=== PATIENT | male | born 1970 | race Caucasian/White ===

== ENCOUNTER 2018-01-13 15:45 | Inpatient (IN) ==
[2018-01-13] MEDS ORDERED: Furosemide 40 MG/4 ML VIAL IVP ONE (16:11)
--- NOTE | 2018-01-13 16:14 | Emergency Department Note ---
Disposition Clinical Impression: Elevated troponin, Peripheral edema Congestive heart failure Qualifiers: Heart failure type: unspecified Heart failure chronicity: acute Qualified Code( s): I50.9 - Heart failure, unspecified Disposition: Admitted As Inpatient Condition: Good Referrals: NONE,PCP [Primary Care Provider] - Forms: ED Satisfaction Letter Time of Disposition: 18:12 General Adult HPI - General Chief complaint: ED Shortness of Breath/Dyspnea Stated complaint: general edema Time Seen by Provider: 01/13/18 15:55 Source: patient Mode of arrival: ambulatory Limitations: no limitations Nursing Notes Reviewed: Yes Vital Signs Reviewed: Yes - History of Present Illness HPI Narrative: 47-year-old male with no significant past medical history but has not followed up with a physician in greater than 20 years presenting to the emergency Department chief complaint of dyspnea and new onset fluid retention. Patient states for the past 3 days has had increased shortness of breath and swelling in his bilateral lower extremities and abdomen. He states this has never happened before. Denies any cardiac history. Denies any nausea, vomiting or abdominal pain. Denies any fevers or cough. Pain Scale: 0 - Related Data Previous Rx's Medication Instructions Recorded Cephalexin [Keflex] 500 mg PO BID #14 capsule 08/14/15 Allergies Allergy/AdvReac Type Severity Reaction Status Date / Time No Known Allergies Allergy Verified 08/14/15 12:07 All systems ED: reviewed and negative except as stated. Respiratory: Reports: dyspnea Past Medical History - Past Medical History Attestation: Yes The following information was validated with the patient. Medical history: Reports: no medical history Surgical history: Reports: no surgical history Psychiatric history: Reports: no psych history - Social History Smoking Status: Never smoker Smokeless Tobacco Status: Yes Alcohol use: Reports: none Drug use: Reports: none Physical Exam - General Limitations: no limitations General appearance: alert, anxious - Head Head exam: atraumatic, normocephalic, normal inspection - Eye Eye exam: Present: normal appearance. Absent: scleral icterus, conjunctival injection - ENT ENT exam: normal exam, mucous membranes moist - Neck Neck exam: Present: normal inspection, full ROM. Absent: tenderness, meningismus - Chest Chest inspection: Present: normal inspection, symmetric chest wall rise. Absent : tenderness, rash - Respiratory Respiratory exam: Present: other (Decreased breath sounds bilaterally) - Cardiovascular Cardiovascular exam: Present: normal rhythm, tachycardia - Abdominal Exam Abdominal exam: Present: Non-Tender, distention. Absent: guarding, rebound, rigidity - Extremities Exam Extremities exam: Present: other (2+ pitting edema bilateral lower extremities) - Neurological Exam Neurological exam: Present: alert, oriented X3 - Psychiatric Psychiatric exam: Present: normal affect, normal mood - Skin Skin exam: Present: warm, intact Course Course Narrative: 47-year-old male presenting to the emergency Department chief complaint of fluid retention dyspnea. Patient is fluid overloaded on exam. Hypoxic when he was first brought back to his room in the emergency department. Once resting patient was in the low 90s. Patient is mildly tachycardic as well. Concern for CHF at this time. We will perform basic laboratory analysis along with placing the patient on BiPAP. We will plan to admit the patient but pending results. Patient agrees with this plan. He is alert and oriented 3 in the room. - Reevaluation(s) Reevaluation #1: Patient's troponin elevated at 0.06. BNP elevated at greater than 1600. Chest x-ray was concerning for pericardial effusion the bedside ultrasound completed did not show any fluid around the heart. Patient states he is feeling moderately better after Lasix and nitro drip. Patient is alert and went 3 in the room with stable vital signs at this time. We will plan to admit the patient for CHF exacerbation. Patient denies any chest pain. Elevated troponin most likely from demand ischemia. I spoke with the hospice on-call Dr. Hernandez who agrees to accept the patient at this time. Vital Signs Temperature 98.3 F 01/13/18 15:46 Pulse Rate 105 01/13/18 15:46 Respiratory Rate 24 01/13/18 15:46 Blood Pressure 153/116 01/13/18 15:46 O2 Sat by Pulse Oximetry 93 01/13/18 15:46 Temperature 98.3 F 01/13/18 15:46 Pulse Rate 105 01/13/18 15:46 Respiratory Rate 24 01/13/18 15:46 Blood Pressure 153/116 01/13/18 15:46 O2 Sat by Pulse Oximetry 93 01/13/18 15:46 Oxygen Delivery Oxygen Delivery Room Air Medical Decision Making - Lab Data Result diagrams: 01/13/18 16:20 01/13/18 16:20 Lab Results 01/13/18 01/13/18 01/13/18 Range/Units 16:11 16:20 16:20 WBC 12.0 H (4.3-11.1) K/mcL RBC 4.26 (4.19-5.50) M/mcL Hgb 11.6 L (12.9-16.9) g/dL Hct 37.2 L (37.5-50.1) % MCV 87.3 (83.0-100.0) fL MCH 27.2 L (28.0-33.3) pg MCHC 31.2 L (31.6-35.5) g/dL RDW 14.8 H (11.5-14.5) % Plt Count 363 (140-400) K/mcL MPV 10.2 (9.4-12.4) fL Immature Gran % 0.3 (0-4) % Seg Neutrophils % 62.6 % Lymphocytes % 20.0 % Monocytes % 6.4 % Eosinophils % 9.5 % Basophils % 1.2 % Neutrophils # 7.5 (1.6-8.9) K/mcL Lymphocytes # 2.4 (0.6-4.6) K/mcL Monocytes # 0.8 (0.0-1.3) K/mcL Eosinophils # 1.1 H (0.0-0.6) K/mcL Basophils # 0.2 (0.0-0.2) K/mcL Sodium 138 (136-145) mEq/L Potassium 3.5 (3.5-5.1) mEq/L Chloride 100 (98-107) mEq/L Carbon Dioxide 32 H (23-29) mEq/L BUN 19 (6-20) mg/dL Creatinine 0.78 (0.70-1.30) mg/dL Est GFR ( Amer) > 60 (> 60) Est GFR (Non-Af Amer) > 60 (> 60) BUN/Creatinine Ratio 24 (6-26) Glucose 159 H (70-105) mg/dL POC Glucose 144 H (70-99) mg/dL Calculated Osmolality 292 (280-300) Lactic Acid (0.5-2.2) mmol/L Calcium 8.8 (8.6-10.3) mg/dL Total Bilirubin 0.8 (0.3-1.0) mg/dL Direct Bilirubin 0.4 H (0.0-0.2) mg/dL Indirect Bilirubin 0.4 (0.0-1.2) mg/dL AST 86 H (13-39) Units/L ALT 82 H (7-52) Units/L Alkaline Phosphatase 109 H (34-104) Units/L Troponin I 0.06 H* (< 0.04) ng/mL B-Natriuretic Peptide (Less than 100) pg/mL Serum Total Protein 5.9 L (6.4-8.9) g/dL Albumin 3.2 L (3.5-5.7) g/dL Globulin 2.7 (2.4-3.5) g/dL Albumin/Globulin Ratio 1.2 (1.1-2.2) 01/13/18 01/13/18 Range/Units 16:20 16:20 WBC (4.3-11.1) K/mcL RBC (4.19-5.50) M/mcL Hgb (12.9-16.9) g/dL Hct (37.5-50.1) % MCV (83.0-100.0) fL MCH (28.0-33.3) pg MCHC (31.6-35.5) g/dL RDW (11.5-14.5) % Plt Count (140-400) K/mcL MPV (9.4-12.4) fL Immature Gran % (0-4) % Seg Neutrophils % % Lymphocytes % % Monocytes % % Eosinophils % % Basophils % % Neutrophils # (1.6-8.9) K/mcL Lymphocytes # (0.6-4.6) K/mcL Monocytes # (0.0-1.3) K/mcL Eosinophils # (0.0-0.6) K/mcL Basophils # (0.0-0.2) K/mcL Sodium (136-145) mEq/L Potassium (3.5-5.1) mEq/L Chloride (98-107) mEq/L Carbon Dioxide (23-29) mEq/L BUN (6-20) mg/dL Creatinine (0.70-1.30) mg/dL Est GFR ( Amer) (> 60) Est GFR (Non-Af Amer) (> 60) BUN/Creatinine Ratio (6-26) Glucose (70-105) mg/dL POC Glucose (70-99) mg/dL Calculated Osmolality (280-300) Lactic Acid 1.5 (0.5-2.2) mmol/L Calcium (8.6-10.3) mg/dL Total Bilirubin (0.3-1.0) mg/dL Direct Bilirubin (0.0-0.2) mg/dL Indirect Bilirubin (0.0-1.2) mg/dL AST (13-39) Units/L ALT (7-52) Units/L Alkaline Phosphatase (34-104) Units/L Troponin I (< 0.04) ng/mL B-Natriuretic Peptide 1624 H (Less than 100) pg/mL Serum Total Protein (6.4-8.9) g/dL Albumin (3.5-5.7) g/dL Globulin (2.4-3.5) g/dL Albumin/Globulin Ratio (1.1-2.2) - EKG Data EKG #1 EKG attestation: Yes I reviewed and interpreted this EKG. EKG results narrative: Sinus rhythm. Right bundle branch block. 93 beats for minute. IL interval 173 , QRS 161, QTc 413. No signs of acute ST segment elevation or ischemia. Attestation Statement - Attestation Attestation: I, Steve Cornelius DO, examined this patient [id number] and my medical decision-making was reviewed with Dr. Kasandra Mccord, Resident Physician. I agree with the documented findings, disposition and treatment plan as described except to the extent set forth below. Please see my progress notes for details.
[2018-01-13 16:32] LABS: Basophils # 0.2 K/mcL (0.0-0.2); Basophils % 1.2 %; Eosinophils # 1.1 K/mcL (0.0-0.6); Eosinophils % 9.5 %; Hematocrit 37.2 % (37.5-50.1); Hemoglobin 11.6 g/dL (12.9-16.9); Immature Granulocytes % 0.3 % (0-4); Lymphocytes # 2.4 K/mcL (0.6-4.6); Mean Corpuscular HGB Conc 31.2 g/dL (31.6-35.5); Mean Corpuscular Hemoglobin 27.2 pg (28.0-33.3); Mean Corpuscular Volume 87.3 fL (83.0-100.0); Mean Platelet Volume 10.2 fL (9.4-12.4); Monocytes # 0.8 K/mcL (0.0-1.3); Monocytes % 6.4 %; Neutrophils # 7.5 K/mcL (1.6-8.9); Platelet Count 363 K/mcL (140-400); Red Blood Count 4.26 M/mcL (4.19-5.50); Red Cell Distribution Width 14.8 % (11.5-14.5); Segmented Neutrophils % 62.6 %
[2018-01-13] MEDS ORDERED: Nitroglycerin 25 MG/250 ML INFUS..BTL IVC SCH (16:45)
--- NOTE | 2018-01-13 16:48 | Emergency Department Note ---
Disposition Clinical Impression: Elevated troponin, Peripheral edema Congestive heart failure Qualifiers: Heart failure type: unspecified Heart failure chronicity: acute Qualified Code( s): I50.9 - Heart failure, unspecified Disposition: Admitted As Inpatient Condition: Good Referrals: NONE,PCP [Primary Care Provider] - Forms: ED Satisfaction Letter General Adult HPI - General Chief complaint: ED Shortness of Breath/Dyspnea Stated complaint: general edema Time Seen by Provider: 01/13/18 15:55 Source: patient Limitations: no limitations - History of Present Illness Pain Scale: 0 - Related Data Previous Rx's Medication Instructions Recorded Cephalexin [Keflex] 500 mg PO BID #14 capsule 08/14/15 Allergies Allergy/AdvReac Type Severity Reaction Status Date / Time No Known Allergies Allergy Verified 08/14/15 12:07 Past Medical History - Past Medical History Medical history: Reports: no medical history Surgical history: Reports: no surgical history Psychiatric history: Reports: no psych history - Social History Smoking Status: Never smoker Smokeless Tobacco Status: Yes Alcohol use: Reports: none Drug use: Reports: none Physical Exam - General Limitations: no limitations General appearance: alert, anxious Course Vital Signs Temperature 98.3 F 01/13/18 15:46 Pulse Rate 105 01/13/18 15:46 Respiratory Rate 24 01/13/18 15:46 Blood Pressure 153/116 01/13/18 15:46 O2 Sat by Pulse Oximetry 93 01/13/18 15:46 Temperature 98.3 F 01/13/18 15:46 Pulse Rate 105 01/13/18 15:46 Respiratory Rate 24 01/13/18 15:46 Blood Pressure 153/116 01/13/18 15:46 O2 Sat by Pulse Oximetry 93 01/13/18 15:46 Oxygen Delivery Oxygen Delivery Room Air Medical Decision Making - Lab Data Result diagrams: 01/13/18 16:20 01/13/18 16:20 Lab Results 01/13/18 01/13/18 01/13/18 Range/Units 16:11 16:20 16:20 WBC 12.0 H (4.3-11.1) K/mcL RBC 4.26 (4.19-5.50) M/mcL Hgb 11.6 L (12.9-16.9) g/dL Hct 37.2 L (37.5-50.1) % MCV 87.3 (83.0-100.0) fL MCH 27.2 L (28.0-33.3) pg MCHC 31.2 L (31.6-35.5) g/dL RDW 14.8 H (11.5-14.5) % Plt Count 363 (140-400) K/mcL MPV 10.2 (9.4-12.4) fL Immature Gran % 0.3 (0-4) % Seg Neutrophils % 62.6 % Lymphocytes % 20.0 % Monocytes % 6.4 % Eosinophils % 9.5 % Basophils % 1.2 % Neutrophils # 7.5 (1.6-8.9) K/mcL Lymphocytes # 2.4 (0.6-4.6) K/mcL Monocytes # 0.8 (0.0-1.3) K/mcL Eosinophils # 1.1 H (0.0-0.6) K/mcL Basophils # 0.2 (0.0-0.2) K/mcL Sodium 138 (136-145) mEq/L Potassium 3.5 (3.5-5.1) mEq/L Chloride 100 (98-107) mEq/L Carbon Dioxide 32 H (23-29) mEq/L BUN 19 (6-20) mg/dL Creatinine 0.78 (0.70-1.30) mg/dL Est GFR ( Amer) > 60 (> 60) Est GFR (Non-Af Amer) > 60 (> 60) BUN/Creatinine Ratio 24 (6-26) Glucose 159 H (70-105) mg/dL POC Glucose 144 H (70-99) mg/dL Calculated Osmolality 292 (280-300) Lactic Acid (0.5-2.2) mmol/L Calcium 8.8 (8.6-10.3) mg/dL Total Bilirubin 0.8 (0.3-1.0) mg/dL Direct Bilirubin 0.4 H (0.0-0.2) mg/dL Indirect Bilirubin 0.4 (0.0-1.2) mg/dL AST 86 H (13-39) Units/L ALT 82 H (7-52) Units/L Alkaline Phosphatase 109 H (34-104) Units/L Troponin I 0.06 H* (< 0.04) ng/mL B-Natriuretic Peptide (Less than 100) pg/mL Serum Total Protein 5.9 L (6.4-8.9) g/dL Albumin 3.2 L (3.5-5.7) g/dL Globulin 2.7 (2.4-3.5) g/dL Albumin/Globulin Ratio 1.2 (1.1-2.2) 01/13/18 01/13/18 Range/Units 16:20 16:20 WBC (4.3-11.1) K/mcL RBC (4.19-5.50) M/mcL Hgb (12.9-16.9) g/dL Hct (37.5-50.1) % MCV (83.0-100.0) fL MCH (28.0-33.3) pg MCHC (31.6-35.5) g/dL RDW (11.5-14.5) % Plt Count (140-400) K/mcL MPV (9.4-12.4) fL Immature Gran % (0-4) % Seg Neutrophils % % Lymphocytes % % Monocytes % % Eosinophils % % Basophils % % Neutrophils # (1.6-8.9) K/mcL Lymphocytes # (0.6-4.6) K/mcL Monocytes # (0.0-1.3) K/mcL Eosinophils # (0.0-0.6) K/mcL Basophils # (0.0-0.2) K/mcL Sodium (136-145) mEq/L Potassium (3.5-5.1) mEq/L Chloride (98-107) mEq/L Carbon Dioxide (23-29) mEq/L BUN (6-20) mg/dL Creatinine (0.70-1.30) mg/dL Est GFR ( Amer) (> 60) Est GFR (Non-Af Amer) (> 60) BUN/Creatinine Ratio (6-26) Glucose (70-105) mg/dL POC Glucose (70-99) mg/dL Calculated Osmolality (280-300) Lactic Acid 1.5 (0.5-2.2) mmol/L Calcium (8.6-10.3) mg/dL Total Bilirubin (0.3-1.0) mg/dL Direct Bilirubin (0.0-0.2) mg/dL Indirect Bilirubin (0.0-1.2) mg/dL AST (13-39) Units/L ALT (7-52) Units/L Alkaline Phosphatase (34-104) Units/L Troponin I (< 0.04) ng/mL B-Natriuretic Peptide 1624 H (Less than 100) pg/mL Serum Total Protein (6.4-8.9) g/dL Albumin (3.5-5.7) g/dL Globulin (2.4-3.5) g/dL Albumin/Globulin Ratio (1.1-2.2) Critical Care Time Critical Care Time: Yes Total Critical Care Time: 45 Attestation: Critical care performed: Time is exclusive of separately billable procedures. Time includes: direct patient care, patient reassessment, coordination of patient care, interpretation of data (laboratory data, radiology data, and respiratory data), review of patient's medical records, medical consultation and documentation of patient care. Procedures included in critical care time: Procedures excluded from critical care time: Attestation Statement - Attestation Attestation: I, Steve Cornelius DO, examined this patient [id number] and my medical decision-making was reviewed with Dr. Kasandra Mccord, Resident Physician. I agree with the documented findings, disposition and treatment plan as described except to the extent set forth below. Please see my progress notes for details. 47-year-old male presents emergency room for evaluation of shortness of breath, fluid overload, increased weight gain, difficulty with breathing. Patient has never had any like this before and does not go to the doctor. She denies any other illnesses or medical issues at this time. He is noticed some fluid building up over the last several weeks. Patient denies any fevers or chills chest pain headache vision changes nausea vomiting or diarrhea. He has not been able to walk or take care of himself over the last week secondary to the fluid buildup. Physical exam shows a morbidly obese gentleman with what appears to be third spacing anasarca across the abdomen and pelvis and lower extremities. He has a yellow discoloration of the skin but no signs of scleral icterus at this time. Patient's oropharynx is mucous membranes are moist. Lungs are clear heart is regular abdomen is soft. He does have pitting edema all the way to the abdomen of the chest wall. Patient is concerning for fluid overload of unknown etiology at this point along with potential other metabolic related derangements. Chest x-ray EKG labs including CBC chemistry troponin and BMP will be collected resulted here at this time. Disposition will most likely be admission the hospital. Patient will be placed on BiPAP as well as provided with Lasix and started on nitroglycerin drip. This was a to 45 minutes of critical care. See detailed documentation of the physical exam, medical intervention, medical decision-making and disposition in the resident physician's note. 1715 Patient is feeling better after the breathing treatments. Nitroglycerin is being titrated up at this point of symptoms. Patient is refusing with BiPAP any longer because he feels it makes him worse. He does have abnormal liver function testing along with decreased albumin along with elevated BNP and troponin. Unknown etiology for the fluid overload at this point. Patient is clinically stable despite he does have potential for decompensation. He is recommended to continue wearing his BiPAP. Help with symptom control but does not want to. The fear is that he will continue to work so hard to breathe that he gets so short of breath that he becomes hypoxic and has respiratory distress and needs intubate. She is otherwise stable at this point will require further hospital evaluation and treatment.
[2018-01-13 16:54] LABS: Alanine Aminotransferase 82 Units/L (7-52); Albumin 3.2 g/dL (3.5-5.7); Albumin/Globulin Ratio 1.2 (1.1-2.2); Alkaline Phosphatase 109 Units/L (34-104); Aspartate Amino Transferase 86 Units/L (13-39); BUN/Creatinine Ratio 24 (6-26); Bilirubin,Direct 0.4 mg/dL (0.0-0.2); Bilirubin,Indirect 0.4 mg/dL (0.0-1.2); Bilirubin,Total 0.8 mg/dL (0.3-1.0); Blood Urea Nitrogen 19 mg/dL (6-20); Calcium 8.8 mg/dL (8.6-10.3); Carbon Dioxide 32 mEq/L (23-29); Chloride 100 mEq/L (98-107); Globulin 2.7 g/dL (2.4-3.5); Glucose 159 mg/dL (70-105); Osmolality,Calculated 292 (280-300); Potassium 3.5 mEq/L (3.5-5.1); Sodium 138 mEq/L (136-145); Total Protein 5.9 g/dL (6.4-8.9); eGFR For African Americans > 60 (> 60); eGFR For Non-African Americans > 60 (> 60)
[2018-01-13 16:59] LABS: Troponin I 0.06 ng/mL (< 0.04)
[2018-01-13] MEDS ORDERED: Naloxone 0.4 MG/ML INJ IVP PRN (20:13)
--- NOTE | 2018-01-13 20:31 | Internal Med History&Physical ---
<Cristian Ching R - Last Filed: 01/13/18 20:26> Date of Encounter: 01/13/18 Time of Encounter: 19:45 Internal Medicine - H&P: HPI Chief complaint: Dyspnea Admitted From: Emergency Dept History of present illness: Mr. Justice is a 47 year old male with no known past medical history and has not seen a doctor in over 20 years, presented to the emergency department with 3 day history of dyspnea and fluid retention. He states that he has swelling in his bilateral lower extremities in his abdomen. He reports weight gain and increasing abdominal girth. This is never happened to him before. Denies personal or family history of cardiac disease. He denies fevers, chills, headache, blurred vision, chest pain, cough, back pain, abdominal pain, nausea, vomiting, change in bowels, hematochezia, hematuria, dysuria, weakness, numbness , or leg pain. Denies smoking, alcohol, or other drug use. He does report that about 2 weeks ago he had a cold with cough, but this resolved prior to his new symptoms beginning. Upon arrival to the emergency department he was hypoxic and tachycardic, placed on BiPAP and nitro drip. Eventually he refused to keep BiPAP on, and has maintained good oxygen saturation on 2 L nasal cannula. Past Med Surg Social Fam HX - Past Medical History Medical history: no medical history Psychiatric history: no psych history - Past Surgical History Surgical History: no surgical history - Social History Smoking Status: Never smoker Smokeless Tobacco Status: Yes Alcohol use: none Drug use: none Internal Medicine - H&P: Meds No Known Home Drugs 01/13/18 [History] 3 Allergy/AdvReac Type Severity Reaction Status Date / Time No Known Allergies Allergy Verified 08/14/15 12:07 All Systems PM: A 10-system review of systems was performed and is negative for pertinent findings except as documented above in the HPI. - Constitutional Vitals: Temp Pulse Resp BP Pulse Ox 98.5 F 89 18 144/103 97 01/13/18 20:05 01/13/18 20:05 01/13/18 20:05 01/13/18 20:05 01/13/18 20:05 General appearance: Present: A&O X 3, no acute distress, answers questions appropriately - Head Head exam: Present: atraumatic, normocephalic - Eye Eye exam: Present: EOMI, PERRL, conjuntiva pink, sclera anicteric - ENT ENT exam: Present: mucous membranes moist, normal oropharynx - Neck Neck exam general surgery: Present: supple, trachea midline. Absent: lymphadenopathy - Respiratory Respiratory exam: Present: decreased breath sounds, rales (Mild bibasilar). Absent: accessory muscle use, rhonchi, wheezes - Cardiovascular Cardiovascular exam: Present: RRR, +S1, +S2. Absent: diastolic murmur, systolic murmur - GI/Abdominal GI/Abdominal exam: Present: distended (With pitting edema), firm, normal bowel sounds, soft, no peritoneal signs. Absent: guarding, rebound, tenderness - Extremities Exam Extremities exam: Present: normal capillary refill, pedal edema (+2 pitting edema bilaterally), warm, radial pulses palpable and symmetrical. Absent: calf tenderness, cyanotic, tenderness - Neurological Exam Neurological exam: Present: CN II-XII intact, oriented X3, no focal deficits. Absent: facial droop, speech deficit - Skin Skin exam: Present: dry, intact Internal Med - H&P Results - Labs CBC & Chem 7: 01/13/18 16:20 01/13/18 16:20 - Assessment and plan (1) Congestive heart failure Current Visit: Yes Status: Acute Assessment and plan: Patient presents with new onset fluid overload, likely cardiogenic in nature - Peripheral edema, crackles on lung exam, and enlarged cardiopericardial silhouette on CXR. BNP 1624. Denies any chest pain. Patient was placed on BiPAP and nitro drip for pulmonary congestion. Now refused BiPAP. Will also stop nitro drip. No prior cardiac evaluation. Mild leukocytosis, no evidence of consolidation on chest x-ray. Mild normocytic anemia. No electrolyte disturbances or abnormal renal function. Lactic acid normal. Check echocardiogram, I&O's, daily weights, trend troponin. Check TSH, lipid panel, A1c. IV lasix 20mg q8h. Start BB, ACEI, and ASA. Consult cardiology for further recommendations and possible further imaging Qualifiers: Heart failure type: unspecified Heart failure chronicity: acute Qualified Code(s): I50.9 - Heart failure, unspecified (2) Elevated troponin Current Visit: Yes Status: Acute Assessment and plan: Trop 0.06. Likely demand ischemia in setting of fluid overload. Trend q6h. (3) Hypertension Current Visit: Yes Status: Acute Assessment and plan: BP 144-156/103-121. Stop nitro drip. Will start BB and ACEI as above. No medical evaluation in several years. Continue to monitor. Qualifiers: Hypertension type: unspecified Qualified Code(s): I10 - Essential (primary ) hypertension (4) Peripheral edema Current Visit: Yes Status: Acute Assessment and plan: Significant lower extremity edema beginning 3 days ago. Etiology is likely cardiogenic in nature, but other causes have not been ruled out. Elevation in AST, ALT, and Alk Phos. Albumin 3.2. No EtOH, med, or drug abuse. Direct bilirubin 0.4, no jaundice. No AMS. Renal function normal, check UA to evaluation for proteinuria. BMI is 45 and this could be related to HAILE, but no imaging has been conducted to confirm yet. If cardiac work-up is negative, consider abdominal imaging. (5) DVT prophylaxis Current Visit: Yes Status: Acute Assessment and plan: Lovenox - Time Spent With Patient Total time spent is greater than 50% in coordination of care (as documented) at patient's floor/unit and/or counseling patient: <Rad Roman - Last Filed: 01/14/18 02:22> Date of Encounter: 01/13/18 Internal Medicine - H&P: HPI History of present illness: Mr. Justice is a 47 year old male All Systems PM: A 10-system review of systems was performed and is negative for pertinent findings except as documented above in the HPI. - Constitutional Vitals: Temp Pulse Resp BP Pulse Ox 97.9 F 91 19 131/91 96 01/13/18 23:11 01/13/18 23:11 01/13/18 23:11 01/13/18 23:11 01/13/18 23:11 Internal Med - H&P Results - Labs CBC & Chem 7: 01/13/18 16:20 01/13/18 16:20 Labs: Cardiac Enzymes 01/13/18 Range/Units 21:36 Troponin I 0.06 H* (< 0.04) ng/mL - Attending Attestation I examined this patient and my medical decision-making was reviewed with the Resident Physician Dr. Ching. I agree with the documented findings, disposition and treatment plan as described except to the extent set forth below. Mr. Justice is a 47 year old male with no known past medical history presented to the emergency department with 3 day history of dyspnea and fluid retention. he did mention he has been having worsening SOB for few days and legs welling, but from last 3 days it got worsened Gen: A,A,O x 3 Chest: Diminishes BS, mild crackles, no wheezing heart: S1S2+ RRR No murmurs Ext: 3+ pitting edema a/p 1. Acute CHF exacerbation - no 2 D Echo to confirm systolic vs diastolic Lasix naive pt..started on Lasix 20 Q8hr low dose BB + ACEI Check 2 D Echo in AM trend on trop - to r/o ACS 2. Acute hypoxic resp failure due to CHF exacerbation O2 PRN IV diuretics - Time Spent With Patient Total time spent is greater than 50% in coordination of care (as documented) at patient's floor/unit and/or counseling patient:
[2018-01-14 03:27] LABS: Bilirubin,Urine Negative (Negative); Blood,Urine Trace (Negative); Clarity,Urine Clear (Clear); Color,Urine Yellow (Yellow); Glucose,Urine (UA) Normal (Normal); Ketones,Urine Negative (Negative); Leukocyte Esterase,Urine Negative (Negative); Nitrite,Urine Negative (Negative); PH,Urine 6.5 pH Units (5.0-8.0); Protein,Urine 30 mg/dL (Neg-Trace); Specific Gravity,Urine 1.017 (1.010-1.025); Urobilinogen,Urine Normal (Normal)
[2018-01-14 03:30] LABS: Bacteria,Urine None Seen per hpf (None-Few); Hyaline Casts,Urine None Seen per lpf (None-Few); Squamous Epithelial Cell,Urine Moderate per lpf (None-Few); WBC,Urine 0-3 per hpf (0-3)
[2018-01-14 03:44] LABS: Basophils # 0.1 K/mcL (0.0-0.2); Basophils % 1.1 %; Eosinophils # 1.4 K/mcL (0.0-0.6); Eosinophils % 12.4 %; Hematocrit 37.6 % (37.5-50.1); Hemoglobin 11.3 g/dL (12.9-16.9); Immature Granulocytes % 0.5 % (0-4); Lymphocytes # 2.1 K/mcL (0.6-4.6); Lymphocytes % 19.7 %; Mean Corpuscular HGB Conc 30.1 g/dL (31.6-35.5); Mean Corpuscular Hemoglobin 26.4 pg (28.0-33.3); Mean Corpuscular Volume 87.9 fL (83.0-100.0); Mean Platelet Volume 10.1 fL (9.4-12.4); Monocytes # 0.7 K/mcL (0.0-1.3); Monocytes % 6.4 %; Neutrophils # 6.5 K/mcL (1.6-8.9); Platelet Count 383 K/mcL (140-400); Red Blood Count 4.28 M/mcL (4.19-5.50); Red Cell Distribution Width 14.9 % (11.5-14.5); Segmented Neutrophils % 59.9 %
[2018-01-14 03:51] LABS: INR 1.4; Prothrombin Time 15.6 Seconds (9.4-12.1)
[2018-01-14 04:08] LABS: Alanine Aminotransferase 73 Units/L (7-52); Albumin/Globulin Ratio 1.1 (1.1-2.2); Alkaline Phosphatase 105 Units/L (34-104); Aspartate Amino Transferase 69 Units/L (13-39); BUN/Creatinine Ratio 20 (6-26); Bilirubin,Total 0.9 mg/dL (0.3-1.0); Blood Urea Nitrogen 17 mg/dL (6-20); Calcium 8.7 mg/dL (8.6-10.3); Carbon Dioxide 33 mEq/L (23-29); Chloride 101 mEq/L (98-107); Chol/HDL Ratio 3.7 (0-4.9); Cholesterol 99 mg/dL (< 200); Globulin 2.8 g/dL (2.4-3.5); Glucose 154 mg/dL (70-105); HDL Cholesterol 27 mg/dL (40-59); LDL Cholesterol,Calculated 55 mg/dL (0-99); Magnesium 1.6 mg/dL (1.6-2.6); Osmolality,Calculated 299 (280-300); Phosphorous 3.9 mg/dL (2.7-4.5); Potassium 3.9 mEq/L (3.5-5.1); Sodium 142 mEq/L (136-145); Total Protein 5.8 g/dL (6.4-8.9); Triglycerides 84 mg/dL (< 150); eGFR For African Americans > 60 (> 60); eGFR For Non-African Americans > 60 (> 60)
[2018-01-14 04:09] LABS: Troponin I 0.07 ng/mL (< 0.04)
[2018-01-14 04:21] LABS: Thyroid Stimulating Hormone 5.719 mcIU/mL (0.340-5.600)
[2018-01-14] MEDS ORDERED: *HR* Enoxaparin 30 MG/0.3 ML SYRINGE SQ SCH (07:00)
[2018-01-14 08:15] LABS: Estimated Average Glucose 148 mg/dl; Hemoglobin A1C 6.8 %
--- NOTE | 2018-01-14 09:27 | Cardiology Consult Note ---
<Shashank,Thaddeus R - Last Filed: 01/14/18 09:25> Date of Encounter: 01/14/18 Time of Encounter: 09:25 Assessment and Plan (1) Congestive heart failure Current Visit: Yes Status: Acute Acute CHF exacerbation--unclear type--systolic vs diastolic. TTE to determine. BNP 1624. Complaints of weight gain, dypsnea, LE edema. However, CXR shows lungs are clear. Agree with IV diuresis--currently on IV Lasix 20mg TID. Pt endorses excess fluid intake. States he is always thirsty. Will check HGBA1C since he has not seen a provider in 20 years. Recommend strict I/Os, Na and fluid restriction, daily weights. Further recommendations pending TTE. Qualifiers: Heart failure type: unspecified Heart failure chronicity: acute Qualified Code(s): I50.9 - Heart failure, unspecified (2) Elevated troponin Current Visit: Yes Status: Acute Troponin 0.06, 0.06, 0.07 in setting of CHF exacerbation. Flat and adynamic, likely demand ischemia. Denies chest pain. Check TTE. (3) Hypertension Current Visit: Yes Status: Acute Elevated on admission, now better controlled. Adjust antihypertensives as necessary. Qualifiers: Hypertension type: unspecified Qualified Code(s): I10 - Essential (primary ) hypertension Discussion w patient/family: The assessment and plan as outlined above was discussed with the patient and/or family members who expressed understanding and agreement. All questions were answered. Thank you for involving us in the care of your patient. Please call with any questions. I will discuss all the above with Dr. Kumar and make changes as necessary. History of Present Illness Consult date: 01/14/18 Requesting physician: Rad Roman Consult reason: CHF, elevated troponin Chief complaint: Dyspnea, LE edema History of present illness: Mr. Justice is a 47 year old male with no known past medical history and has not seen a doctor in over 20 years, presented to the emergency department with 3 day history of dyspnea and fluid retention. He states that he has swelling in his bilateral lower extremities in his abdomen. He reports weight gain and increasing abdominal girth. Denies personal or family history of cardiac disease. Denies smoking, alcohol, or other drug use. He does report that about 2 weeks ago he had a cold with cough, but this resolved prior to his new symptoms beginning. Upon arrival to the emergency department he was hypoxic and tachycardic, placed on BiPAP and nitro drip. Pt denies chest pain. Does endorse excess fluid intake. Troponin 0.06, 0.06, 0.07. BNP 1624. CXR Enlarged cardiopericardial silhouette suggesting cardiomegaly and/or pericardial effusion. Clear lungs. Past Med Surg Social Fam HX - Past Medical History Medical history: no medical history Psychiatric history: no psych history - Past Surgical History Surgical History: no surgical history - Social History Smoking Status: Never smoker Smokeless Tobacco Status: Yes Alcohol use: none Drug use: none Medications and Allergies No Known Home Drugs 01/13/18 [History] 3 Allergy/AdvReac Type Severity Reaction Status Date / Time No Known Allergies Allergy Verified 08/14/15 12:07 All Systems Review: The remainder of the systems were reviewed and are negative - Constitutional Constitutional: weight gain - Cardiovascular Cardiovascular: as per HPI, dyspnea at rest, dyspnea on exertion, leg edema, orthopnea - Respiratory Respiratory: cough, dyspnea Physical Examination Vital Signs, Last 4 Hours Temp Pulse Resp BP Pulse Ox 01/14/18 07:31 97.7 F 88 17 118/88 94 Vital Signs Temp Pulse Resp BP Pulse Ox 01/14/18 07:31 97.7 F 88 17 118/88 94 01/14/18 03:34 97.9 F 87 18 122/97 95 01/13/18 23:11 97.9 F 91 19 131/91 96 01/13/18 20:15 90 01/13/18 20:05 98.5 F 89 18 144/103 97 01/13/18 19:12 87 18 156/115 98 01/13/18 18:43 88 18 153/121 95 01/13/18 16:30 24 153/116 100 01/13/18 15:46 98.3 F 105 24 153/116 93 Intake and Output 01/13/18 01/14/18 01/14/18 23:59 07:59 15:59 Intake Total 105 / 105 240 / 240 480 / 480 Output Total 500 / 500 300 / 300 Balance -395 / -395 -60 / -60 480 / 480 Intake: IV Fluids 105 / 105 Nitroglycerin Premix 25 MG/250 105 / 105 ML 25 mg In 250 ml @ 50 MCG/MIN 30 mls/hr IVC .Q8H20M [facility] Rx#: [id number] Oral 0 / 0 240 / 240 480 / 480 Output: Urine 500 / 500 300 / 300 Other: Meal Breakfast Percent of Meal Consumed 100% Weight 148.9 kg 148.2 kg Blood Glucose* 124 Patient Weight 01/14/18 23:59 Weight 148.2 kg General: Conversant, No Apparent Distress HEENT: Atraumatic, Normocephaly, Mucus Membranes Moist Neck: Normal carotid pulses Cardiac: Reg Rate and Rhythm, Normal S1 and S2, No Murmur Lungs: Other (mild wheezes) Neuro: Alert and responsive, No focal deficits noted Abdomen: Soft, Non-Tender Skin: No rashes noted on visualized skin Musculoskeletal: No Chest Wall Tenderness Extremities: Other (moderate LE edema) Results 01/14/18 03:19 01/14/18 03:19 Short CBC 01/14/18 01/13/18 Range/Units 03:19 16:20 WBC 10.9 12.0 H (4.3-11.1) K/mcL Hgb 11.3 L 11.6 L (12.9-16.9) g/dL Hct 37.6 37.2 L (37.5-50.1) % Plt Count 383 363 (140-400) K/mcL Neutrophils # 6.5 7.5 (1.6-8.9) K/mcL BMP 01/14/18 01/13/18 Range/Units 03:19 16:20 Sodium 142 138 (136-145) mEq/L Potassium 3.9 3.5 (3.5-5.1) mEq/L Chloride 101 100 (98-107) mEq/L Carbon Dioxide 33 H 32 H (23-29) mEq/L BUN 17 19 (6-20) mg/dL Creatinine 0.87 0.78 (0.70-1.30) mg/dL Glucose 154 H 159 H (70-105) mg/dL Calcium 8.7 8.8 (8.6-10.3) mg/dL Cardiac Enzymes 01/14/18 01/13/18 01/13/18 Range/Units 03:19 21:36 16:20 Troponin I 0.07 H* 0.06 H* 0.06 H* (< 0.04) ng/mL Liver Function 01/14/18 01/13/18 Range/Units 03:19 16:20 Total Bilirubin 0.9 0.8 (0.3-1.0) mg/dL Direct Bilirubin 0.4 H (0.0-0.2) mg/dL AST 69 H 86 H (13-39) Units/L ALT 73 H 82 H (7-52) Units/L Alkaline Phosphatase 105 H 109 H (34-104) Units/L Albumin 3.0 L 3.2 L (3.5-5.7) g/dL Urine 01/14/18 Range/Units 03:10 Urine Color Yellow (Yellow) Urine Clarity Clear (Clear) Urine pH 6.5 (5.0-8.0) pH Units Ur Specific [place] 1.017 (1.010-1.025) Urine Protein 30 H (Neg-Trace) mg/dL Urine Glucose (UA) Normal (Normal) mg/dL Impressions Chest X-Ray 01/13/18 16:05 IMPRESSION: Enlarged cardiopericardial silhouette suggesting cardiomegaly and/or pericardial effusion. Correlation is recommended. Clear lungs. D/ / Zoila Garcia Cha, MD / Zoila Garcia Cha, MD Interpreting Provider: Zoila Garcia Cha, MD Active Medications Aspirin (Aspirin Ec) 81 mg PO DAILY [facility] Stop: 07/16/18 09:01 Carvedilol (Coreg) 3.125 mg PO BIDWM MAN PRN Reason: Protocol Stop: 07/15/18 20:39 Last Admin: 01/13/18 20:56 Dose: 3.125 mg Enoxaparin Sodium (Lovenox) 30 mg SQ 0700 MAN PRN Reason: Protocol Stop: 07/16/18 07:01 Furosemide (Lasix) 20 mg IVP Q8H MAN Stop: 07/16/18 21:01 Ibuprofen (Motrin) 400 mg PO Q6HR PRN PRN Reason: Mild Pain/Fever Stop: 07/15/18 20:14 Lisinopril (Zestril) 2.5 mg PO DAILY MAN PRN Reason: Protocol Stop: 07/16/18 09:01 Naloxone HCl (Narcan) 0.4 mg IVP Q2MIN PRN PRN Reason: SEE COMMENTS Stop: 07/15/18 20:14 - EKG Interpretation EKG results cardiology: personally reviewed (SR, RBBB), other (12 hr tele AVG HR 84, SR, no significant pauses or arrhythmias noted.) Consult Discharge Plan - Plan Referrals: NONE,PCP [Primary Care Provider] - <ArtissarahMarisarayne - Last Filed: 01/14/18 20:48> Date of Encounter: 01/14/18 - Attending Attestation I have personally performed a face to face evaluation on this patient. I have reviewed and agree with the care plan. History and Exam by me shows: 47 YOM with new onset CHF Recent weight gain, RAMIREZ, orthopnea and PND Severe LE swelling ECHO and Likely LHC EKG with RBBB and ST changes anteriorly Patient unable to lay flat for LHC at this time, continue diuresis with Heparin ACS protocol Consider LHC in am Assessment and Plan Discussion w patient/family: The assessment and plan as outlined above was discussed with the patient and/or family members who expressed understanding and agreement. All questions were answered. Thank you for involving us in the care of your patient. Please call with any questions. History of Present Illness History of present illness: Mr. Justice is a 47 year old male All Systems Review: The remainder of the systems were reviewed and are negative Physical Examination Vital Signs, Last 4 Hours Temp Pulse Resp BP Pulse Ox 01/14/18 18:48 97.7 F 78 19 137/100 100 Results 01/14/18 03:19 01/14/18 03:19
[2018-01-14] MEDS: Aspirin Enteric Coated 81 MG Tablet PO SCH (09:37)
[2018-01-14] MEDS ORDERED: Perflutren Lipid Microsphere 1.3 ML in 0.9 % Sodium Chloride 8.7 ML IVP ONE (10:45)
[2018-01-14] MEDS: Ibuprofen 400 MG TABLET PO PRN ×2 (13:13→20:31)
--- NOTE | 2018-01-14 17:25 | Internal Med Progress Note ---
Date of Encounter: 01/14/18 Time of Encounter: 17:22 - Time Spent With Patient - Assessment and plan (1) Congestive heart failure Current Visit: Yes Status: Acute Assessment and plan: Patient presents with new onset fluid overload, likely cardiogenic in nature - Peripheral edema, crackles on lung exam, and enlarged cardiopericardial silhouette on CXR. BNP 1624. Denies any chest pain. Patient was placed on BiPAP and nitro drip for pulmonary congestion. Now refused BiPAP. Will also stop nitro drip. No prior cardiac evaluation. Mild leukocytosis, no evidence of consolidation on chest x-ray. Mild normocytic anemia. No electrolyte disturbances or abnormal renal function. Lactic acid normal. Check echocardiogram, I&O's, daily weights, trend troponin. Check TSH, lipid panel, A1c. IV Lasix 20mg q8h. Start BB, ACEI, and ASA. Consult cardiology for further recommendations and possible further imaging Pt evaluated by cardiology and further recommendations following resut of TTE. Qualifiers: Heart failure type: unspecified Heart failure chronicity: acute Qualified Code(s): I50.9 - Heart failure, unspecified (2) Elevated troponin Current Visit: Yes Status: Acute Assessment and plan: Trop 0.06, 0.06, 0.07. Likely demand ischemia in setting of fluid overload. (3) Hypertension Current Visit: Yes Status: Acute Assessment and plan: BP 144-156/103-121. Stop nitro drip. Will start BB and ACEI as above. No medical evaluation in several years. Continue to monitor. Qualifiers: Hypertension type: unspecified Qualified Code(s): I10 - Essential (primary ) hypertension (4) Peripheral edema Current Visit: Yes Status: Acute Assessment and plan: Significant lower extremity edema beginning 3 days ago. Etiology is likely cardiogenic in nature, but other causes have not been ruled out. Elevation in AST, ALT, and Alk Phos. Albumin 3.2. No EtOH, med, or drug abuse. Direct bilirubin 0.4, no jaundice. No AMS. Renal function normal, check UA to evaluation for proteinuria. BMI is 45 and this could be related to HAILE, but no imaging has been conducted to confirm yet. If cardiac work-up is negative, consider abdominal imaging. Pt notes that edema improved since admission. (5) DVT prophylaxis Current Visit: Yes Status: Acute Assessment and plan: Lovenox less than 15 minutes - Subjective Interval history: Mr. Justice is a 47 year old male with no known past medical history and has not seen a doctor in over 20 years, presented to the emergency department with 3 day history of dyspnea and fluid retention. Pt's family at bedside. He denies prior hx of [place] that he he is aware of. Denies chest pain at this time. Positive bilateral LE edema noted. - Constitutional Vitals: Temp Pulse Resp BP Pulse Ox 98.2 F 84 20 114/92 94 01/14/18 16:14 01/14/18 16:14 01/14/18 16:14 01/14/18 16:14 01/14/18 16:14 General appearance: Present: A&O X 3, no acute distress, obese, answers questions appropriately - Head Head exam: Present: atraumatic, normocephalic - Eye Eye exam: Present: PERRL, conjuntiva pink, sclera anicteric Pupils: Present: PERRL - Neck Neck exam general surgery: Present: supple, trachea midline. Absent: lymphadenopathy - Expanded Respiratory Exam Location: decreased breath sounds: Left, Right - Cardiovascular Cardiovascular exam: Present: RRR, +S1, +S2. Absent: diastolic murmur, gallop, rubs, systolic murmur Additional comments: Distant heart sounds due to body habitus. - GI/Abdominal GI/Abdominal exam: Present: normal bowel sounds, soft, no peritoneal signs. Absent: distended, tenderness - Extremities Exam Extremities exam: Present: pedal edema (e), warm, radial pulses palpable and symmetrical. Absent: calf tenderness, cyanotic - Neurological Exam Neurological exam: Present: CN II-XII intact, oriented X3, no focal deficits. Absent: pronater drift, facial droop, speech deficit - Psychiatric Psychiatric exam: Present: normal affect, normal mood - Skin Skin exam: Present: dry, intact Internal Medicine: Result - Labs CBC & Chem 7: 01/14/18 03:19 01/14/18 03:19 - ABG Interpretation ABG results: PT/INR, D-dimer PT 15.6 Seconds (9.4-12.1) H 01/14/18 03:19 - Impressions Impressions Echocardiogram 01/14/18 20:16 Impressions: LVEF 30%. Severely dilated left ventricle. Moderate left ventricular diastolic dysfunction. Normal right ventricular structure and function. Moderately dilated left atrium. Moderate mitral regurgitation. Moderate pulmonary hypertension. The pericardium appears normal. Left Ventricular Wall Motion: Rest Echo Findings The apex, apical inferior, mid inferior, basal inferior, apical anterior, mid anterior, basal anterior, apical septal, mid inferior septal, basal inferior septal, apical lateral, mid anterior lateral, basal anterior lateral, mid anterior septal, mid inferior lateral, basal anterior septal and basal inferior lateral kruse were hypokinetic. Findings: Study Quality * Technically adequate exam. ECG Findings * Normal sinus rhythm. Left Ventricle * LVEF 30%. * Severely dilated left ventricle. * Severe left ventricular systolic dysfunction. * Moderate left ventricular diastolic dysfunction. Right Ventricle * Normal right ventricular structure and function. Left Atrium * Moderately dilated left atrium. Right Atrium * Normal right atrial size. Interatrial Septum * No evidence of PFO by color Doppler. Aortic Valve * Trileaflet aortic valve with normal function. Mitral Valve * Moderate mitral regurgitation. Tricuspid Valve * Mild-moderate tricuspid regurgitation. * Estimated RVSP is 35 mmHg. * Estimated RA pressure is 20 mmHg. * Moderate pulmonary hypertension. Pulmonic Valve * Pulmonic valve not well visualized. Aorta * Normally sized aortic root. Pericardium * The pericardium appears normal. IVC * The IVC is dilated. * IVC plethora is noted Consult Discharge Plan - Plan Referrals: NONE,PCP [Primary Care Provider] -
[2018-01-14] MEDS: Furosemide 20 MG/2 ML VIAL IVP SCH (20:31)
[2018-01-15] MEDS: Furosemide 20 MG/2 ML VIAL IVP SCH ×3 (04:38→20:42)
[2018-01-15] MEDS: *HR* Enoxaparin 40 MG/0.4 ML SYRINGE SQ SCH (06:26)
[2018-01-15] MEDS: Aspirin Enteric Coated 81 MG Tablet PO SCH (07:45)
[2018-01-15 10:16] LABS: ABG Base Excess 8 mEq/L (-2 to 3); ABG HCO3 34 mEq/L (21-27); ABG Oxygen Saturation 98 % (95-98); ABG PCO2 55 mmHg (35-45); ABG PO2 100 mmHg (85-104); ABG TCO2 36 mEq/L (20-26)
--- NOTE | 2018-01-15 11:32 | Event Note ---
Date of Encounter: 01/15/18 Time of Encounter: 11:31 - Cardiology Event Note TTE resulted--EF 30%. NICMP vs ICMP. Recommend LHC to further evaluate. R/B/A discussed. Pt agrees to proceed. LHC today.
[2018-01-15 11:46] LABS: Basophils # 0.1 K/mcL (0.0-0.2); Basophils % 1.2 %; Eosinophils # 0.8 K/mcL (0.0-0.6); Eosinophils % 8.5 %; Hematocrit 39.1 % (37.5-50.1); Immature Granulocytes % 0.3 % (0-4); Lymphocytes # 1.7 K/mcL (0.6-4.6); Lymphocytes % 17.6 %; Mean Corpuscular HGB Conc 30.7 g/dL (31.6-35.5); Mean Corpuscular Volume 88.1 fL (83.0-100.0); Monocytes # 0.7 K/mcL (0.0-1.3); Monocytes % 6.7 %; Neutrophils # 6.4 K/mcL (1.6-8.9); Platelet Count 381 K/mcL (140-400); Red Blood Count 4.44 M/mcL (4.19-5.50); Segmented Neutrophils % 65.7 %
[2018-01-15 11:53] LABS: INR 1.4; Prothrombin Time 15.2 Seconds (9.4-12.1)
[2018-01-15 11:59] LABS: BUN/Creatinine Ratio 24 (6-26); Blood Urea Nitrogen 20 mg/dL (6-20); Calcium 9.1 mg/dL (8.6-10.3); Carbon Dioxide 32 mEq/L (23-29); Chloride 102 mEq/L (98-107); Glucose 103 mg/dL (70-105); Osmolality,Calculated 295 (280-300); Potassium 3.9 mEq/L (3.5-5.1); Sodium 141 mEq/L (136-145); eGFR For African Americans > 60 (> 60); eGFR For Non-African Americans > 60 (> 60)
[2018-01-15] MEDS ORDERED: *HR* FentaNYL (PF) 100 MCG/2 ML VIAL ONE (12:00)
[2018-01-15] MEDS ORDERED: *HR* Midazolam HCl 2 MG/2 ML VIAL ONE (12:00)
--- NOTE | 2018-01-15 12:00 | Pre-Sedation Evaluation ---
Pre-sedation evaluation - Pre-sedation checklist Date of procedure: 01/15/18 Procedure: LHC Recent Vitals: Last Vital Signs Temp 98.0 F 01/15/18 08:56 Pulse 88 01/15/18 11:27 Resp 20 01/15/18 08:56 BP 144/107 01/15/18 08:56 Pulse Ox 95 01/15/18 08:56 ASA Classification *see protocol: CLASS II-Mild systemic disease
[2018-01-15] MEDS ORDERED: 0.9 % Sodium Chloride 1,000 ML ONE ×2 (12:01→12:59)
--- NOTE | 2018-01-15 12:50 | Invasive Diagnostic Lab Proc ---
Name: Jose Justice Date of Study: 01/15/2018 Date: 1970 Ht: 70.9in Medical Record#: [id number] Age: 47 Wt: 324.08lb Gender: Male BSA: 2.59 Order #: [id number] BMI: 45.37 Physicians Procedure Physician: Seb Kumar MD Referring MD: Referring MD: Staff Name Position Time In LenoreStefanie woodson RN Monitor 11:59 AM Jaylen Doe RN Patrol Guard 11:59 AM Mani Treviño RN Patrol Guard 11:59 AM Kaykay Desouza RT (R) Scrub 11:59 AM Indications Indication Non-Stemi Procedures Performed Procedure L HRT ARTERY/VENTRICLE ANGIO Pre-Procedure Checklist Informed consent is complete signed and on chart. H&P is on chart. ID band is on and ID verified with patient. Patient NPO for procedure The procedure was described for the patient and questions were answered. Blood Pressure: 144/107 ECG is on chart. Rhythm: NSR Plan of Care Patient will tolerate the procedure without complications. Adequate level of comfort will be maintained. Hemodynamics will remain stable Patient will recover from procedure without complications. Respiratory function will be maintained. Cardiac rhythm will remain stable. Patient temperature will be maintained. Patient and/or family have verbalized understanding of the procedure. Patient Education Chief Complaint/Reason for Test: Cardiac Cath Developmental Category: Adult (18-64 years) Developmentally Appropriate for Age: Yes Learning Barriers: None Education Needs: Procedure Education Method: Verbal Information Taught: Cardiac Cath Educational Evaluation: Able to repeat information Intravenous Access Time IV Size Location DC'd Fluid/Drip Rate Units RN 11:48 AM 20g 1 1/4" Patent On Arrival Rt Antecubital Mani Treviño RN 12:01 PM 20g 1 1/4" Patent On Arrival Lt Hand 0.9NaCl 25 ml/hr Mani Terviño RN Allergies No Known Allergies Vital Signs Time BP (mmHg) HR (bpm) O2 Sat. RR (bpm) LOC 11:48 AM 144 / 107 88 95 % 20 5 = Fully awake and oriented or at pre-proc level 12:00 PM / % 5 = Fully awake and oriented or at pre-proc level 12:00 PM / % 5 = Fully awake and oriented or at pre-proc level 12:15 PM / % 4 = Oriented but drowsy 12:02 PM 146 / 116 84 96 % 12:07 PM 154 / 95 82 91 % 12:12 PM 149 / 98 85 94 % 12:17 PM 161 / 103 85 93 % 12:22 PM 151 / 106 86 93 % 12:27 PM 152 / 103 81 88 % 12:32 PM 151 / 85 83 % Procedural Medications Time Medication Dose Units Method Given By 12:00 PM Oxygen 2 L/min nasal cannula Mani Treviño RN 12:04 PM Versed 1 mg Intravenous Mani Treviño RN 12:04 PM Fentanyl 50 mcg Intravenous Mani Treviño RN 12:18 PM Lidocaine 2% 10 ml Subcutaneous Seb Kumar MD ASA Classification: CLASS II- Mild systemic disease (i.e. well-controlled diabetes, hypertension, asthma, cigarette smoking) Wilver Score Preprocedure Postprocedure Activity 2- Moves 4 extremities sustained head lift Activity 2- Moves 4 extremities sustained head lift Circulation 2- SBP +/= 20 points of pre-anesthetic level Circulation 2- SBP +/= 20 points of pre-anesthetic level Consciousness 2- Awake and alert oriented x 3 Consciousness 2- Awake and alert oriented x 3 O2 Saturation 2- Able to maintain O2 satruation of 92% on room air O2 Saturation 2- Able to maintain O2 satruation of 92% on room air Respiratory 2- Able to deep breathe and cough well Respiratory 2- Able to deep breathe and cough well Total Score 10 Total Score 10 Contrast Agent: Isovue Diagnostic Contrast: 96 ml Total Contrast: 96 ml Fluoro Dose: 397 mGy Procedure Log Time Note Enter By 11:58 AM Pt arrived to labor gang supervisor 2 at 11:58 [email or web address] 11:59 AM Stefanie Rosenbaum RN Position: Monitor Time in: 11:59 [facility] 11:59 AM Jaylen Doe RN Position: Patrol Guard [facility]: 11:59 [facility] 11:[facility] AM Mani Treviño RN Position: Patrol Guard Time in: 11:59 [facility] 11:59 AM Kaykay Desouza RT (R) Position: Scrub Time in: 11:59 [facility] 11:59 AM Patient charges- Angio tray pack, Navilyst 3mm J, Pulse Oximetry and ACIST tubing and transducer [facility] 11:59 AM Case Delayed No [facility] 11:59 AM Hair removed from procedure site in procedure lab using clippers. Bilateral groin prepped with Chloraprep by Jaylen Doe RN, then patient was draped. Skin intact. [facility] 11:59 AM Physicliz paged/called 11:59. [facility] 11[facility] AM Physican responded and notified patient is ready 11:59 [email or web address] 11:59 AM Physician arrived 11:59 [facility] 12:00 PM Meet and greet completed [facility] 12:00 PM Sign in performed according to hospital policy. [facility] 12:00 PM Procedure start 12:00 [facility] 12:00 PM CathStat 12:00 PM Time: 12:00 Oxygen on at 2 L/min per nasal cannula by Mani Treviño RN [facility] 12:00 PM Time: 12:00 Patient comfortable and pain free: Yes [facility] 12:00 PM Time: 12:00LOC: 5 = Fully awake and oriented or at pre-proc level [facility] 12:00 PM Clinical Presentation: Non-STEMI [facility] 12:01 PM Vitals capture started with the following parameters, Patient=Adult, Interval=5 min, Initial Kozgekdp=549 mmHg, Deflation Rate=5 mmHg, Cuff placed on Right Arm 12:02 PM HR=84 bpm, LMZU=871/116 mmhg, SpO2=96.0 %, Comment=NSR 12:02 PM ASA Class CLASS II- Mild systemic disease (i.e. well-controlled diabetes, hypertension, asthma, cigarette smoking) [facility] 12:03 PM Recorded ECG: HR=85 Condition=Condition 1 12:04 PM Time: 12:04 Versed 1 mg Intravenous Given by Mani [facility]vi[facility] RN [facility] 12:04 PM Time: 12:04 Fentanyl 50 mcg Intravenous Given by Mani Treviño RN [facility] 12:07 PM HR=82 bpm, EZSF=063/95 mmhg, SpO2=91.0 %, Comment=NSR 12:10 PM Pressure channel 1 zeroed. 12:12 PM HR=85 bpm, XEXZ=918/98 mmhg, SpO2=94.0 %, Comment=NSR 12:14 PM Time out performed according to hospital policy [facility] 12:15 PM Time: 12:00 Patient comfortable and pain free: Yes [facility] 12:15 PM Time: 12:00LOC: 5 = Fully awake and oriented or at pre-proc level [facility] 12:17 PM HR=85 bpm, YEME=853/103 mmhg, SpO2=93.0 %, Comment=NSR 12:18 PM Time: 12:18 10 ml Lidocaine 2% to left groin Subcutaneous Given by Seb Kumar MD [facility] 12:19 PM Micro-Introducer Kit utilized for sheath placement [facility] 12:19 PM Access obtained by percutaneous puncture. 6Fr 10cm Terumo [place] sheath placed in left Femoral artery. [id number] mm 12:20 PM 0.035 145cm Navilyst 3mmJ wire [id number] [facility] 12:20 PM 5Fr FR 4 catheter inserted over the wire [facility] 12:20 PM wire removed [facility] 12:20 PM RCA angiography performed in multiple views. tsmmers 12:20 PM Recorded Pressure: Ao, HR=86, Condition=Condition 1 (Aorta) Ao 123/101/113 12:22 PM HR=86 bpm, IQDP=367/106 mmhg, SpO2=93.0 %, Comment=NSR 12:22 PM wire reinserted. oumm 12:22 PM Catheter removed [facility] 12:22 PM 5Fr FL 4 catheter inserted over the wire [facility] 12:23 PM wire removed [facility] 12:23 PM LCA angiography performed in multiple views. tsoummers 12:23 PM Recorded Pressure: Ao, HR=82, Condition=Condition 1 (Aorta) Ao 115/99/108 12:24 PM Recorded Pressure: Ao, HR=80, Condition=Condition 1 (Aorta) Ao 119/100/111 12:26 PM Catheter removed [facility] 12:26 PM 5Fr Pigtail catheter inserted over the wire [facility] 12:26 PM Catheter selectively placed in left ventricle tsoummers 12:27 PM HR=81 bpm, JFUI=484/103 mmhg, SpO2=88.0 %, Comment=NSR 12:28 PM Recorded Pressure: LV, HR=86, Condition=Condition 1 (Left Ventricle) LV 115/32/36 12:29 PM Bolus angiogram of left Ventricle complete: 10 ml/sec for a total of 30 mls tsoummers 12:29 PM Recorded Pressure: LV, HR=81, Condition=Condition 1 (Left Ventricle) LV 121/5/27 12:29 PM Recorded Pressure: LV, Ao, HR=84, Condition=Condition 1 (Left Ventricle) LV 130/10/28, (Aorta) Ao 132/92/109 12:30 PM Time: 12:15LOC: 4 = Oriented but drowsy tsoummers 12:30 PM Time: 12:15 Patient comfortable and pain free: Yes tsoummers 12:30 PM Catheter removed tsoummers 12:30 PM Procedure completed at 12:30 tsoummers 12:31 PM Sign out completed: Radiation Dose 396.69 mGy Fluoro Time: 3.2 Isovue 370 - 200ml contrast 96 ml given by Seb Kumar MD. Complications: NoneCardiac Rehab Consult needed: NoConfirmed administered medications: Yes tsoummers 12:31 PM Isovue 370 - 200ml,1 Bottle(s) used. tsoummers 12:31 PM Arterial sheath pulled, Angio-seal closure device used and was Successful [id number] S/N. tsoummers 12:31 PM Estimated Blood Loss: minimal tsoummers 12:31 PM Post ECG NSR tsoummers 12:31 PM Post Blood Pressure 152/103 tsoummers 12:31 PM Information taught Cardiac Cath tsoummers 12:31 PM Education needs Procedure, Plan of Care, and Responsibilities of Patient in Care tsoummers 12:31 PM Learning barriers :None tsoummers 12:31 PM Education Methods Verbal tsoummers 12:31 PM Education evaluation Able to repeat information tsoummers 12:32 PM Site status No bleeding/hematoma - Lt Groin as reported by Kaykay Desouza RT (R) at 12:31 tsoummers 12:32 PM Opsite applied tsoummers 12:32 PM Plavix, Effient or Brilinta given No tsoummers 12:32 PM Delay to floor No tsoummers 12:32 PM Complications: None tsoummers 12:32 PM HR=83 bpm, EWTU=963/85 mmhg, Comment=NSR 12:32 PM Family placed in consult room. tsoummers 12:32 PM Fluoro Time: 3.2 tsoummers 12:32 PM Isovue 370 - 200ml contrast [address] Kumar. [facility] 12:32 PM Radiation Dose 396.69 mGy [facility] 12:36 PM Report given to Claire MAGALLANES Pt taken to Room #12. 12:36 [facility] 12:36 PM Coronary Dominance: right [facility] 12:37 PM Patient out of room: 12:37 [facility] 12:39 PM What is the NYHA Class? Class 4 [facility] Complications Complication None Hemodynamics Pressures Site Systolic/A Wave Diastolic/V Wave Mean AO 123 101 113 AO 115 99 108 AO 119 100 111 LV 115 32 36 LV 121 5 27 LV 130 10 28 AO 132 92 109 Post Procedure Information Blood Pressure: 152/103 mmHg Rhythm: NSR Post procedural instructions were given Closure Device Time Device Success/Fail 01/15/2018 12:31:00 PM Angio-Seal VIP Successful Site Checks Time Location Status Staff Sheath In? Note 12:31 PM Lt Groin No bleeding/hematoma Kaykay Desozua RT (R) Pulses Time Site Pre-Procedure Post-Procedure Note 01/15/2018 11:48:00 AM Bilateral DP & PT 1+ Updated by Stefanie Rosenbaum RN on 01/15/2018 12:42:33 PM electronically signed on 01/15/2018 12:43:27 PM with status of Final
[2018-01-15] MEDS ORDERED: Heparin 1,000 UNITS/500 mL 500 ML ONE (12:59)
[2018-01-15] MEDS ORDERED: Nitroglycerin 1,000 MCG/10 ML VIAL IV ONE (12:59)
[2018-01-15] MEDS ORDERED: *HR* Heparin 10,000 UNIT/10 ML VIAL ONE (12:59)
[2018-01-15] MEDS ORDERED: ISOVUE-370 200 ML INFUS..BTL IV ONE (12:59)
[2018-01-15] MEDS ORDERED: Dextrose Gel 15 GM/37.5 ML TUBE PO PRN ×2 (14:50)
[2018-01-15] MEDS ORDERED: *HR* Dextrose 50 % in Water (Syg) 50 ML SYRINGE IVP PRN (14:50)
[2018-01-15] MEDS ORDERED: D5% in Water 1,000 ML IVC PRN (14:50)
[2018-01-15] MEDS ORDERED: Acetaminophen 325 MG TABLET PO PRN (15:00)
--- NOTE | 2018-01-15 15:07 | Event Note ---
Date of Encounter: 01/15/18 Time of Encounter: 15:05 - Cardiology Event Note LHC nonischemic cardiomyopathy, no intervention. Discussed lifevest given his EF is 30% and has dilated LV--risk for sudden cardiac . Pt states he will not be compliant or wear the lifevest. R/B/A discussed. Pt verbalizes understanding of risks, including sudden cardiac . On BB and ACEi. Recommend outpt sleep study to evaluate and treat sleep apnea. Recheck TTE as outpt in 3 months to re-evaluate EF. If EF remains <35%, will need to discuss ICD. Cardiology signing off. Reconsult PRN. Follow-up as outpt in 1-2 weeks. Will coordinate. Recommend pt be sent home on PO maintenance Lasix as well.
--- NOTE | 2018-01-15 16:37 | Internal Med Progress Note ---
Date of Encounter: 01/15/18 Time of Encounter: 09:40 - Assessment and plan (1) Hyperglycemia Current Visit: Yes Status: Acute Assessment and plan: Patient has no medical follow-up, no diagnosis of diabetes. Hemoglobin A1c noted to be 6.8% with random blood glucose above 150. Will start Accu-Chek blood glucose monitoring. (2) Congestive heart failure Current Visit: Yes Status: Acute Assessment and plan: New onset. Echocardiogram shows decreased ejection fraction of 30%, severe left ventricular dilation, moderate LV diastolic dysfunction, moderate left atrial dilation and mitral regurgitation, moderate pulmonary hypertension. Cardiology on board. Continue IV Lasix, beta finesse, KHANG inhibitor. Improving slowly. Underwent left heart catheterization today, which showed normal coronaries, no intervention. LifeVest has been discussed with the patient by cardiology, patient declined. He is at risk of sudden cardiac and ventricular arrhythmias due to low EF. Will require outpatient cardiology follow-up. Continue telemetry monitoring. Qualifiers: Heart failure type: combined systolic and diastolic Heart failure chronicity: acute Qualified Code(s): I50.41 - Acute combined systolic ( congestive) and diastolic (congestive) heart failure (3) Elevated troponin Current Visit: Yes Status: Acute Assessment and plan: Likely related to demand ischemia due to acute CHF. Serum troponins flat and adynamic, at around 0.06. (4) Hypertension Current Visit: Yes Status: Chronic Assessment and plan: Newly diagnosed. Blood pressure continues to be elevated. We will increase lisinopril and Coreg. Continue to monitor closely. Qualifiers: Hypertension type: essential hypertension Qualified Code(s): I10 - Essential (primary) hypertension (5) Sleep apnea Current Visit: Yes Status: Suspected Assessment and plan: Suspected due to noted nocturnal apneic spells and hypoxia. Overnight BiPAP qualification study has been ordered. Check ABG. Patient will need outpatient formal sleep study and pulmonology follow-up. Qualifiers: Sleep apnea type: obstructive Qualified Code(s): G47.33 - Obstructive sleep apnea (adult) (pediatric) - Time Spent With Patient Total time spent is greater than 50% in coordination of care (as documented) at patient's floor/unit and/or counseling patient: - Subjective Interval history: Reports feeling better; denies chest pain, shortness of breath, improving leg swelling; no fever/chills, cough; awaiting heart cath; - Constitutional Vitals: Temp Pulse Resp BP Pulse Ox 98.0 F 86 84 127/37 92 01/15/18 12:55 01/15/18 16:00 01/15/18 13:00 01/15/18 16:00 01/15/18 12:55 General appearance: Present: A&O X 3, morbidly obese, answers questions appropriately - Respiratory Respiratory exam: Present: CTAB. Absent: accessory muscle use, rales, rhonchi, wheezes - Cardiovascular Cardiovascular exam: Present: RRR, +S1, +S2. Absent: diastolic murmur, gallop, rubs, systolic murmur - GI/Abdominal GI/Abdominal exam: Present: normal bowel sounds, soft (obese), no peritoneal signs. Absent: distended, tenderness - Extremities Exam Extremities exam: Present: full ROM, pedal edema (2+ pitting pedal edema upto groin and abdominal wall), warm, radial pulses palpable and symmetrical. Absent : calf tenderness, cyanotic - Neurological Exam Neurological exam: Present: CN II-XII intact, oriented X3 (poor cognition), no focal deficits. Absent: pronater drift, facial droop, speech deficit Internal Medicine: Result - Labs CBC & Chem 7: 01/15/18 11:20 01/15/18 11:20 Labs: Short CBC 01/15/18 Range/Units 11:20 WBC 9.7 (4.3-11.1) K/mcL Hgb 12.0 L (12.9-16.9) g/dL Hct 39.1 (37.5-50.1) % Plt Count 381 (140-400) K/mcL Neutrophils # 6.4 (1.6-8.9) K/mcL BMP 01/15/18 11:20 Sodium 141 Potassium 3.9 Chloride 102 Carbon Dioxide 32 H BUN 20 Creatinine 0.82 Glucose 103 Calcium 9.1 - ABG Interpretation ABG results: ABG ABG pH 7.40 pH Units (7.32-7.45) 01/15/18 10:13 ABG pCO2 55 mmHg (35-45) H 01/15/18 10:13 ABG pO2 100 mmHg (85-104) 01/15/18 10:13 ABG O2 Saturation 98 % (95-98) 01/15/18 10:13 PT/INR, D-dimer PT 15.2 Seconds (9.4-12.1) H 01/15/18 11:20 Consult Discharge Plan - Plan Referrals: Ally Lindquist CNP [Advanced Practice Nurse] - 01/19/18 2:45 pm (Please arrive 45 min. early to appointment to do new patient paperwork. Bring photo ID and insurance card with you. Because this is your first appointment please bring all prescription bottles with you. If you need to reschedule appointment you are required to give a 24 hour notice.) NONE,PCP [Primary Care Provider] -
[2018-01-15] MEDS: Insulin LISPRO 300 UNITS/3 ML VIAL SQ SCH (16:59)
[2018-01-15] MEDS ORDERED: Ondansetron 4 MG/2 ML VIAL IVP PRN (17:14)
[2018-01-15] MEDS ORDERED: Insulin LISPRO 300 UNITS/3 ML VIAL SQ SCH (21:00)
[2018-01-16] MEDS: Furosemide 20 MG/2 ML VIAL IVP SCH (04:31)
[2018-01-16] MEDS: *HR* Enoxaparin 40 MG/0.4 ML SYRINGE SQ SCH (06:56)
[2018-01-16] MEDS: Aspirin Enteric Coated 81 MG Tablet PO SCH (08:26)
[2018-01-16] MEDS: Insulin LISPRO 300 UNITS/3 ML VIAL SQ SCH (08:27)
[2018-01-16 11:24] VITALS: BP 113/74
--- NOTE | 2018-01-16 14:04 | Discharge Summary ---
- NOTES TO OUTPATIENT PROVIDER Notes to Outpatient Provider: Newly diagnosed HTN, CHF, possible OMID, DM Date of Encounter: 01/16/18 Time of Encounter: 14:02 - Discharge Diagnosis (1) Hyperglycemia Priority: Primary Status: Acute (2) Congestive heart failure Priority: Primary Status: Acute Qualifiers: Heart failure type: combined systolic and diastolic Heart failure chronicity: acute Qualified Code(s): I50.41 - Acute combined systolic ( congestive) and diastolic (congestive) heart failure (3) Elevated troponin Priority: Primary Status: Acute (4) Hypertension Priority: Primary Status: Chronic Qualifiers: Hypertension type: essential hypertension Qualified Code(s): I10 - Essential (primary) hypertension (5) Sleep apnea Priority: Primary Status: Suspected Qualifiers: Sleep apnea type: obstructive Qualified Code(s): G47.33 - Obstructive sleep apnea (adult) (pediatric) Hospital course: Mr. Justice is a 47 year old morbidly obese male with no medical followup, who appears mentally slow, was admitted with worsening pedal edema, abdominal distension and weight gain. He was started on IV Lasix and fluid restriction, noted to have good urine output with improvement in symptoms. TTE showed combined CHF with EF 30%, moderate diastolic dysfunction, severe LV dilation, moderate LA dilation, moderate MR and pulmonary HTN. Cardiology was consulted, he underwent LHC showed normal coronaries. He was also started on ASA , beta finesse, ACEI and statin. He was noted to have DM with HbA1C>6.5% and being discharged on Metformin. Lifestyle modifications, cardiac/diabetic diet was encouraged. He was noted to have apneic spells during sleep, he is at high risk for ventricular arrhythmias and sudden cardiac due to cardiomyopathy and possible OHS/OMID. His insurance would not cover BiPAP. Home O2 evaluation was done and he would benefit from 4L/min supplemental O2 via NC, continuously; he is noted to be mobile at home, needs portable home O2. Face to face was completed. Plan of care explained in detail to the family members at bedside, with unfortunately, questionable understanding. He is otherwise medically stable for discharge with outpatient Cardiology f/up. Of note, patient and family refused Life Vest (due to low EF and risk of sudden cardiac ) despite explaining the risks and benefits. Discharge discussed with: patient, family - Time Spent with Patient Total time spent providing and/or coordinating discharge services: Greater than 30 minutes (50 min) - Discharge Medications Prescriptions: Aspirin Enteric Coated [Aspirin EC] 81 mg PO DAILY #30 tablet. Atorvastatin [Lipitor] 20 mg PO HS #60 tablet Carvedilol [Coreg] 6.25 mg PO BIDWM #60 tablet Furosemide [Lasix] 20 mg PO BIDDIURETIC #60 tablet Lisinopril [Zestril] 5 mg PO DAILY #30 tablet metFORMIN [Glucophage] 500 mg PO BIDWM #60 tablet Home Medications: Aspirin Enteric Coated [Aspirin EC] 81 mg PO DAILY #30 tablet. 01/16/18 [Rx] Atorvastatin [Lipitor] 20 mg PO HS #60 tablet 01/16/18 [Rx] Carvedilol [Coreg] 6.25 mg PO BIDWM #60 tablet 01/16/18 [Rx] Furosemide [Lasix] 20 mg PO BIDDIURETIC #60 tablet 01/16/18 [Rx] Lisinopril [Zestril] 5 mg PO DAILY #30 tablet 01/16/18 [Rx] metFORMIN [Glucophage] 500 mg PO BIDWM #60 tablet 01/16/18 [Rx] Allergies/Adverse Reactions: 3 Allergy/AdvReac Type Severity Reaction Status Date / Time No Known Allergies Allergy Verified 08/14/15 12:07 Date of admission: 01/14/18 04:39 Primary care physician: PCP NONE Discharging clinician: Erica Wallace Anticipated date of discharge: 01/16/18 - Constitutional Vitals: Temp Pulse Resp BP Pulse Ox 97.9 F 78 17 113/74 95 01/16/18 11:22 01/16/18 11:22 01/16/18 11:22 01/16/18 11:22 01/16/18 11:22 General appearance: Present: A&O X 3, morbidly obese, answers questions appropriately - Cardiovascular Cardiovascular exam: Present: RRR, +S1, +S2. Absent: diastolic murmur, gallop, rubs, systolic murmur - Patient Status Disposition: Home, Self-Care Condition: Good Functional capacity at discharge: independent ambulation Overall status at discharge: patient is progressing back to baseline - Discharge Instructions Follow Up With: Ally Lindquist CNP [Advanced Practice Nurse] - 01/19/18 2:45 pm (Please arrive 45 min. early to appointment to do new patient paperwork. Bring photo ID and insurance card with you. Because this is your first appointment please bring all prescription bottles with you. If you need to reschedule appointment you are required to give a 24 hour notice.) NONE,PCP [Primary Care Provider] - Additional Instructions: F/up with [facility] in 1-2 weeks - Diet and Activity Activity: resume usual activities as tolerated Diet: diabetic diet, low fat, low cholesterol, low salt diet
[2018-01-16] MEDS ORDERED: Furosemide 20 MG TABLET PO SCH (17:00)
--- NOTE | 2018-01-17 00:35 | Electrocardiograph Report ---
[place] [id number] Test Date: 2018-01-13 Pat Name: Jose Justice Department: 104 Room: 3B48 Gender: M Optical Manufacturing Technician: CELESTINO : 1970 Requested By: Kasandra Mccord Order Number: [id number] Reading MD: Carlene Lee Measurements Intervals [place] Rate: 93 P: 11 NV: 173 QRS: 76 QRSD: 161 T: 107 QT: 363 QTc: 413 Interpretive Statements SINUS RHYTHM POSSIBLE LEFT ATRIAL ENLARGEMENT [-0.1mV P WAVE IN V1/V2] RIGHT BUNDLE BRANCH BLOCK [120+ ms QRS DURATION, UPRIGHT V1, 40+ ms S IN I/aVL/V4/V5/V6] Electronically Signed On 01-17-2018 0:33:38 EDT by Carlene Lee
== END 2018-01-16 16:34 | disposition home or self-care (01) | DRG 192 ==
LOC: EMEROO 15:45 → 2NENU 15:45 → 2NNU 19:20 → SUATTDRO 01-14 04:39 → 3BNU 01-16 08:02
PROVIDERS: ADMIT Internal Medicine; ATTEND Internal Medicine

== ENCOUNTER 2019-10-08 20:29 | Inpatient (IN) ==
[2019-10-08] MEDS ORDERED: Insulin Regular, Human 100 UNIT/ML IV PRN (23:39)
[2019-10-08] MEDS ORDERED: D5% in 0.45% NACL w KCl 20 MEQ/1,000 ML MLS IVC PRN (23:39)
[2019-10-08] MEDS ORDERED: D5% in 0.45% NACL 1,000 ML IVC PRN (23:39)
[2019-10-08] MEDS ORDERED: *HR* Dextrose 50 % in Water (Syg) 50 ML SYRINGE IVP PRN (23:39)
[2019-10-09] MEDS: Insulin Human Regular 100 UNIT in 0.9 % Sodium Chloride 100 ML IVC SCH ×2 (00:17→05:42)
[2019-10-09] MEDS: 0.45 % Sodium Chloride w/KCl 20 MEQ/1,000 ML MLS IVC SCH ×2 (00:18→05:00)
[2019-10-09 00:24] LABS: VBG HCO3 34 mEq/L (21-27); VBG PCO2 58 mmHg (41-51); VBG PH 7.37 pH Units (7.32-7.42); VBG PO2 69 mmHg (25-50)
[2019-10-09 00:36] LABS: Albumin 3.5 g/dL (3.5-5.7); Bilirubin,Total 0.6 mg/dL (0.3-1.0); Calcium 9.6 mg/dL (8.6-10.3); Globulin 3.5 g/dL (2.4-3.5); Magnesium 2.4 mg/dL (1.6-2.6); Phosphorous 2.8 mg/dL (2.7-4.5); Potassium 3.2 mEq/L (3.5-5.1)
[2019-10-09 00:37] LABS: Calcium 9.7 mg/dL (8.6-10.3); Potassium 3.2 mEq/L (3.5-5.1)
[2019-10-09] MEDS ORDERED: Aspirin 325 MG TABLET PO ONE (02:01)
[2019-10-09 02:26] LABS: VBG HCO3 33 mEq/L (21-27); VBG PCO2 52 mmHg (41-51); VBG PH 7.42 pH Units (7.32-7.42); VBG PO2 119 mmHg (25-50)
[2019-10-09] MEDS: *HR* Heparin 5,000 UNIT/ML VIAL SQ SCH ×4 (02:29→20:32)
[2019-10-09 02:36] LABS: Bilirubin,Urine Small (Negative); Blood,Urine Moderate (Negative); Clarity,Urine Clear (Clear); Color,Urine Yellow (Yellow); Glucose,Urine (UA) >=1000 mg/dL (Normal); Ketones,Urine Negative (Negative); Leukocyte Esterase,Urine Negative (Negative); Nitrite,Urine Negative (Negative); Protein,Urine 30 mg/dL (Neg-Trace); Specific Gravity,Urine > 1.030 (1.010-1.025); Urobilinogen,Urine Normal (Normal)
[2019-10-09 02:39] LABS: Bacteria,Urine None Seen per hpf (None-Few); Hyaline Casts,Urine Moderate per lpf (None-Few); RBC,Urine 30-50 per hpf (0-3); Squamous Epithelial Cell,Urine Many per lpf (None-Few)
[2019-10-09 02:43] LABS: Calcium 9.6 mg/dL (8.6-10.3); Potassium 3.5 mEq/L (3.5-5.1)
[2019-10-09 04:39] LABS: VBG HCO3 34 mEq/L (21-27); VBG PCO2 56 mmHg (41-51); VBG PH 7.39 pH Units (7.32-7.42); VBG PO2 95 mmHg (25-50)
[2019-10-09 04:41] LABS: Basophils # 0.2 K/mcL (0.0-0.2); Basophils % 0.9 %; Eosinophils # 0.5 K/mcL (0.0-0.6); Eosinophils % 2.8 %; Hematocrit 43.5 % (37.5-50.1); Hemoglobin 14.5 g/dL (12.9-16.9); Immature Granulocytes % 0.5 % (0-4); Lymphocytes # 2.6 K/mcL (0.6-4.6); Lymphocytes % 15.3 %; Mean Corpuscular HGB Conc 33.3 g/dL (31.6-35.5); Mean Corpuscular Hemoglobin 28.8 pg (28.0-33.3); Mean Corpuscular Volume 86.5 fL (83.0-100.0); Monocytes # 1.5 K/mcL (0.0-1.3); Monocytes % 8.7 %; Platelet Count 198 K/mcL (140-400); Red Blood Count 5.03 M/mcL (4.19-5.50); Red Cell Distribution Width 14.5 % (11.5-14.5); Segmented Neutrophils % 71.8 %; White Blood Count 16.7 K/mcL (4.3-11.1)
[2019-10-09 05:00] LABS: Albumin 3.4 g/dL (3.5-5.7); Bilirubin,Total 0.5 mg/dL (0.3-1.0); Calcium 9.6 mg/dL (8.6-10.3); Globulin 3.5 g/dL (2.4-3.5); Total Protein 6.9 g/dL (6.4-8.9)
[2019-10-09] MEDS ORDERED: Potassium Effervescent 25 MEQ TABLET.EFF PO ONE (05:07)
[2019-10-09] MEDS ORDERED: Potassium Chloride 20 MEQ in D5% in Water 1,000 ML IVC SCH ×2 (06:00→16:11)
[2019-10-09] MEDS ORDERED: Perflutren Lipid Microsphere 1.3 ML in 0.9 % Sodium Chloride 8.7 ML IVP ONE (07:06)
[2019-10-09] MEDS ORDERED: Insulin Human Regular 100 UNIT in 0.9 % Sodium Chloride 100 ML IVC SCH ×2 (07:45→08:00)
[2019-10-09 08:02] LABS: Calcium 9.8 mg/dL (8.6-10.3); Potassium 3.6 mEq/L (3.5-5.1)
[2019-10-09 08:05] LABS: VBG HCO3 35 mEq/L (21-27); VBG PCO2 66 mmHg (41-51); VBG PH 7.33 pH Units (7.32-7.42); VBG PO2 78 mmHg (25-50)
[2019-10-09] MEDS ORDERED: D5% in Water 1,000 ML IVC PRN (09:09)
[2019-10-09] MEDS ORDERED: Dextrose Gel 15 GM/37.5 ML TUBE PO PRN ×2 (09:09)
[2019-10-09] MEDS ORDERED: *HR* Dextrose 50 % in Water (Syg) 50 ML SYRINGE IVP PRN (09:09)
[2019-10-09 09:12] LABS: BUN/Creatinine Ratio 16 (6-26); Blood Urea Nitrogen 23 mg/dL (6-20); Calcium 9.6 mg/dL (8.6-10.3); Carbon Dioxide 33 mEq/L (23-29); Chloride 114 mEq/L (98-107); Glucose 112 mg/dL (70-105); Magnesium 2.3 mg/dL (1.6-2.6); Osmolality,Calculated 330 (280-300); Phosphorous 1.3 mg/dL (2.7-4.5); Potassium 3.4 mEq/L (3.5-5.1); Sodium 158 mEq/L (136-145); eGFR For African Americans > 60 (> 60); eGFR For Non-African Americans 53 (> 60)
[2019-10-09] MEDS ORDERED: 0.45 % Sodium Chloride w/KCl 20 MEQ/1,000 ML MLS IVC SCH (09:15)
[2019-10-09] MEDS: Potassium Chloride 20 MEQ in D5% in Water 1,000 ML IVC SCH ×2 (11:00→14:01)
[2019-10-09] MEDS: Metoprolol XL (24 HR) Succ 25 MG TAB.ER.24H PO SCH (12:32)
[2019-10-09] MEDS: Insulin LISPRO 300 UNITS/3 ML VIAL SQ SCH ×2 (12:40→16:53)
[2019-10-09] MEDS: Divalproex (24 HR) 250 MG TABLET PO SCH (15:27)
[2019-10-09 16:13] LABS: BUN/Creatinine Ratio 17 (6-26); Blood Urea Nitrogen 22 mg/dL (6-20); Calcium 8.4 mg/dL (8.6-10.3); Carbon Dioxide 27 mEq/L (23-29); Chloride 105 mEq/L (98-107); Glucose 377 mg/dL (70-105); Magnesium 1.9 mg/dL (1.6-2.6); Osmolality,Calculated 313 (280-300); Phosphorous 2.6 mg/dL (2.7-4.5); Potassium 4.5 mEq/L (3.5-5.1); Sodium 142 mEq/L (136-145); Troponin I 0.06 ng/mL (< 0.04); eGFR For African Americans > 60 (> 60); eGFR For Non-African Americans > 60 (> 60)
[2019-10-09] MEDS ORDERED: Insulin DETEMIR 100 UNIT/ML X5UNITS SQ SCH (17:10)
[2019-10-09 19:32] LABS: BUN/Creatinine Ratio 17 (6-26); Blood Urea Nitrogen 21 mg/dL (6-20); Calcium 8.4 mg/dL (8.6-10.3); Carbon Dioxide 33 mEq/L (23-29); Chloride 101 mEq/L (98-107); Glucose 355 mg/dL (70-105); Magnesium 1.9 mg/dL (1.6-2.6); Osmolality,Calculated 309 (280-300); Phosphorous 2.1 mg/dL (2.7-4.5); Potassium 3.9 mEq/L (3.5-5.1); Sodium 141 mEq/L (136-145); eGFR For African Americans > 60 (> 60); eGFR For Non-African Americans > 60 (> 60)
[2019-10-09] MEDS ORDERED: Ketorolac 15 MG/ML VIAL IVP ONE (20:16)
[2019-10-09] MEDS ORDERED: Divalproex (12 HR) 250 MG TABLET PO SCH (21:00)
[2019-10-09] MEDS ORDERED: Insulin LISPRO 300 UNITS/3 ML VIAL SQ SCH (21:00)
[2019-10-09] MEDS ORDERED: Ondansetron 4 MG/2 ML VIAL ONE (21:18)
[2019-10-09] MEDS: Ondansetron 4 MG/2 ML VIAL IVP PRN (21:27)
[2019-10-09 21:49] LABS: BUN/Creatinine Ratio 16 (6-26); Blood Urea Nitrogen 19 mg/dL (6-20); Calcium 8.7 mg/dL (8.6-10.3); Carbon Dioxide 32 mEq/L (23-29); Chloride 99 mEq/L (98-107); Glucose 326 mg/dL (70-105); Magnesium 1.8 mg/dL (1.6-2.6); Osmolality,Calculated 303 (280-300); Phosphorous 1.9 mg/dL (2.7-4.5); Potassium 4.2 mEq/L (3.5-5.1); Sodium 139 mEq/L (136-145); eGFR For African Americans > 60 (> 60); eGFR For Non-African Americans > 60 (> 60)
[2019-10-10] MEDS: *HR* OxyCODONE/APAP 5/325 TABLET PO PRN ×2 (00:11→09:03)
[2019-10-10 01:04] LABS: BUN/Creatinine Ratio 17 (6-26); Blood Urea Nitrogen 19 mg/dL (6-20); Calcium 8.6 mg/dL (8.6-10.3); Carbon Dioxide 32 mEq/L (23-29); Chloride 103 mEq/L (98-107); Glucose 307 mg/dL (70-105); Magnesium 2.3 mg/dL (1.6-2.6); Osmolality,Calculated 300 (280-300); Phosphorous 2.2 mg/dL (2.7-4.5); Sodium 138 mEq/L (136-145); eGFR For African Americans > 60 (> 60); eGFR For Non-African Americans > 60 (> 60)
[2019-10-10] MEDS: *HR* Heparin 5,000 UNIT/ML VIAL SQ SCH ×3 (05:06→20:20)
[2019-10-10 07:18] LABS: BUN/Creatinine Ratio 18 (6-26); Blood Urea Nitrogen 18 mg/dL (6-20); Calcium 8.7 mg/dL (8.6-10.3); Carbon Dioxide 31 mEq/L (23-29); Chloride 99 mEq/L (98-107); Glucose 367 mg/dL (70-105); Magnesium 2.1 mg/dL (1.6-2.6); Osmolality,Calculated 303 (280-300); Phosphorous 2.7 mg/dL (2.7-4.5); Potassium 4.6 mEq/L (3.5-5.1); Sodium 138 mEq/L (136-145); eGFR For African Americans > 60 (> 60); eGFR For Non-African Americans > 60 (> 60)
[2019-10-10] MEDS: Metoprolol XL (24 HR) Succ 25 MG TAB.ER.24H PO SCH (07:52)
[2019-10-10] MEDS: Divalproex (24 HR) 250 MG TABLET PO SCH (07:52)
[2019-10-10] MEDS: Insulin LISPRO 300 UNITS/3 ML VIAL SQ SCH ×3 (07:54→17:28)
[2019-10-10] MEDS: Ondansetron 4 MG/2 ML VIAL IVP PRN (08:35)
[2019-10-10] MEDS ORDERED: Aspirin Enteric Coated 81 MG Tablet PO SCH (09:00)
[2019-10-10] MEDS ORDERED: Insulin DETEMIR 100 UNIT/ML X5UNITS SQ SCH (09:00)
[2019-10-10 11:20] LABS: Basophils # 0.1 K/mcL (0.0-0.2); Basophils % 0.9 %; Eosinophils # 1.6 K/mcL (0.0-0.6); Eosinophils % 14.4 %; Immature Granulocytes % 0.4 % (0-4); Lymphocytes # 2.2 K/mcL (0.6-4.6); Lymphocytes % 19.9 %; Mean Corpuscular HGB Conc 32.8 g/dL (31.6-35.5); Mean Corpuscular Hemoglobin 28.8 pg (28.0-33.3); Mean Corpuscular Volume 87.8 fL (83.0-100.0); Mean Platelet Volume 11.3 fL (9.4-12.4); Monocytes # 0.8 K/mcL (0.0-1.3); Monocytes % 7.1 %; Neutrophils # 6.3 K/mcL (1.6-8.9); Platelet Count 130 K/mcL (140-400); Red Blood Count 4.44 M/mcL (4.19-5.50); Red Cell Distribution Width 14.1 % (11.5-14.5); Segmented Neutrophils % 57.3 %; White Blood Count 10.9 K/mcL (4.3-11.1)
[2019-10-10 11:22] LABS: Hemoglobin 12.8 g/dL (12.9-16.9)
[2019-10-10 13:20] LABS: Alanine Aminotransferase 28 Units/L (7-52); Alkaline Phosphatase 131 Units/L (34-104); Aspartate Amino Transferase 48 Units/L (13-39); BUN/Creatinine Ratio 18 (6-26); Bilirubin,Total 0.7 mg/dL (0.3-1.0); Blood Urea Nitrogen 17 mg/dL (6-20); Carbon Dioxide 30 mEq/L (23-29); Chloride 98 mEq/L (98-107); Glucose 360 mg/dL (70-105); Magnesium 2.1 mg/dL (1.6-2.6); Osmolality,Calculated 300 (280-300); Phosphorous 2.5 mg/dL (2.7-4.5); Potassium 4.5 mEq/L (3.5-5.1); Sodium 137 mEq/L (136-145); eGFR For African Americans > 60 (> 60); eGFR For Non-African Americans > 60 (> 60)
[2019-10-10] MEDS ORDERED: Dextrose Gel 15 GM/37.5 ML TUBE PO PRN ×2 (16:12)
[2019-10-10] MEDS ORDERED: D5% in Water 1,000 ML IVC PRN (16:12)
[2019-10-10] MEDS ORDERED: *HR* Dextrose 50 % in Water (Syg) 50 ML SYRINGE IVP PRN (16:12)
[2019-10-10] MEDS ORDERED: *HR* OxyCODONE/APAP 5/325 TABLET PO PRN (16:12)
[2019-10-10] MEDS ORDERED: Ondansetron 4 MG/2 ML VIAL IVP PRN (16:12)
[2019-10-10] MEDS: Insulin DETEMIR 100 UNIT/ML X5UNITS SQ SCH (20:21)
[2019-10-10] MEDS ORDERED: Insulin LISPRO 300 UNITS/3 ML VIAL SQ SCH (21:00)
[2019-10-11] MEDS: *HR* Heparin 5,000 UNIT/ML VIAL SQ SCH (05:18)
[2019-10-11 06:19] LABS: Basophils % 0.5 %; Eosinophils # 1.2 K/mcL (0.0-0.6); Eosinophils % 15.2 %; Hematocrit 38.4 % (37.5-50.1); Hemoglobin 12.5 g/dL (12.9-16.9); Immature Granulocytes % 0.4 % (0-4); Lymphocytes # 1.9 K/mcL (0.6-4.6); Lymphocytes % 23.5 %; Mean Corpuscular HGB Conc 32.6 g/dL (31.6-35.5); Mean Corpuscular Hemoglobin 28.5 pg (28.0-33.3); Mean Corpuscular Volume 87.5 fL (83.0-100.0); Mean Platelet Volume 11.6 fL (9.4-12.4); Monocytes # 0.7 K/mcL (0.0-1.3); Monocytes % 9.2 %; Neutrophils # 4.1 K/mcL (1.6-8.9); Platelet Count 109 K/mcL (140-400); Red Blood Count 4.39 M/mcL (4.19-5.50); Red Cell Distribution Width 13.7 % (11.5-14.5); Segmented Neutrophils % 51.2 %
[2019-10-11 06:48] LABS: Alanine Aminotransferase 25 Units/L (7-52); Albumin 2.9 g/dL (3.5-5.7); Alkaline Phosphatase 115 Units/L (34-104); Aspartate Amino Transferase 38 Units/L (13-39); BUN/Creatinine Ratio 17 (6-26); Bilirubin,Total 0.7 mg/dL (0.3-1.0); Blood Urea Nitrogen 14 mg/dL (6-20); Calcium 9.3 mg/dL (8.6-10.3); Carbon Dioxide 32 mEq/L (23-29); Chloride 98 mEq/L (98-107); Glucose 249 mg/dL (70-105); Magnesium 1.9 mg/dL (1.6-2.6); Osmolality,Calculated 299 (280-300); Phosphorous 2.5 mg/dL (2.7-4.5); Potassium 4.2 mEq/L (3.5-5.1); Sodium 140 mEq/L (136-145); Total Protein 5.9 g/dL (6.4-8.9); eGFR For African Americans > 60 (> 60); eGFR For Non-African Americans > 60 (> 60)
[2019-10-11] MEDS ORDERED: Divalproex (24 HR) 250 MG TABLET PO SCH (09:00)
[2019-10-11] MEDS ORDERED: Aspirin Enteric Coated 81 MG Tablet PO SCH (09:00)
[2019-10-11] MEDS ORDERED: Metoprolol XL (24 HR) Succ 25 MG TAB.ER.24H PO SCH (09:00)
[2019-10-11] MEDS: Insulin LISPRO 300 UNITS/3 ML VIAL SQ SCH ×2 (10:20→14:46)
[2019-10-11] MEDS: Insulin DETEMIR 100 UNIT/ML X5UNITS SQ SCH (10:20)
[2019-10-11 12:53] VITALS: BP 141/72
[2019-10-11] MEDS ORDERED: Insulin DETEMIR 100 UNIT/ML X5UNITS SQ ONE (13:43)
[2019-10-11] MEDS ORDERED: FLU Vac QV 19-20 (6Month+)/PF 0.5 ML SYRINGE IM ONE (15:02)
== END 2019-10-11 15:36 | disposition home or self-care (01) | DRG 420 ==
LOC: ICNU 22:52 → 3ANU 10-10 18:38
PROVIDERS: ADMIT Internal Medicine; ATTEND Internal Medicine